=== PATIENT | female | born 1980 | race African-American/Black ===

== ENCOUNTER 2024-05-07 15:36 | Emergency (ER) | payer BC ==
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
[2024-05-07 16:22] VITALS: TEMP 98.1; O2SAT 100
[2024-05-07 16:23] VITALS: BP 117/65
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
== END 2024-05-07 16:16 | disposition home or self-care (01) ==
LOC: ER 15:36
DX: R06.02 Shortness of breath (principal); Z71.51 Drug abuse counseling and surveillance of drug abuser; F10.20 Alcohol dependence, uncomplicated; F41.9 Anxiety disorder, unspecified; Z59.00 Homelessness unspecified
CPT/HCPCS: 99284

== ENCOUNTER 2024-05-31 15:44 | Emergency (ER) | payer BC ==
[2024-05-31] MEDS ORDERED: DIPHENHYDRAMINE 50 MG/ML VIAL ONE (16:12)
[2024-05-31] MEDS ORDERED: HALOPERIDOL LACT 5 MG/ML INJ ONE ×2 (16:18→16:33)
[2024-05-31 16:59] LABS: Barbiturates NEGATIVE (NEGATIVE); Benzodiazepines NEGATIVE (NEGATIVE); Cocaine NEGATIVE (NEGATIVE); METHAMPHETAM NEGATIVE (NEGATIVE); Methadone NEGATIVE (NEGATIVE); Opiates NEGATIVE (NEGATIVE); Phencyclidine NEGATIVE (NEGATIVE); THC Cannibis NEGATIVE (NEGATIVE)
[2024-05-31 17:08] LABS: Absolute Basophils 0.1 K/uL (0-0.5); Absolute Eosinophils 0.1 K/uL (0-0.5); Absolute Lymphocytes (CBC) 2.3 K/uL (0.7-4.9); Absolute Monocytes 0.4 K/uL (0.1-1.3); Absolute Neutrophil 4.6 K/uL (1.8-8.0); Basophils % 1.2 % (0-1.3); Eosinophils % 0.8 % (0-4.4); Hematocrit 32.5 % (36.0-45.0); Hemoglobin 10.5 g/dL (12.0-15.0); Lymphocytes % 30.4 % (15.3-44.8); MCH 26.3 pg (27.0-35.0); MCHC 32.4 g/dL (32.0-36.0); MCV 81.1 fL (80-100); MPV 6.7 fL (7.6-11.3); Monocytes % 5.7 % (3.3-12.3); Neutrophils % 61.9 % (41.7-73.7); Nucleated Red Blood Cells % 0.1 % (0-0); Platelets 454 thou/uL (152-406); RBC Red Blood Cell Count 4.01 M/uL (3.86-4.86); Red Cell Distribution Width 21.8 % (12.1-15.2)
[2024-05-31 17:27] LABS: Anion Gap 9.5 mEq/L (5.0-15.0); Potassium 3.5 mEq/L (3.5-5.1); Troponin High Sensitivity 3.5 pg/mL (<58.9)
[2024-05-31] MEDS ORDERED: NA CHLORIDE 0.9% 1,000 ML ONE (17:33)
[2024-05-31 17:47] LABS: Anisocytosis 1+; Blood Morphology Comment NOTED (NOT SEEN); Ovalocytes 1+; Platelet Estimate INCR; Poikilocytosis 1+; White Blood Cell Scan OK (OK)
--- NOTE | 2024-05-31 18:01 | RAD REPORT ---
EXAMINATION: ONE VIEW CHEST XR CLINICAL INDICATION: Female, 44 years old.,COUGH TECHNIQUE: Frontal chest projection is submitted. Examination is limited by patient positioning and t echnique. COMPARISON: No prior exam. FINDINGS: Right basilar opacity. Central interstitial prominence more so on the right. Blunting of the costophr enic angles bilaterally. No pneumothorax or sizable effusion. The heart is normal in size. Mediastinal contours are unremarkable. IMPRESSION: Central and bibasilar findings as above, more pronounced on the right, may reflect a degree of centra l edema or atelectasis.
--- NOTE | 2024-05-31 19:43 | RAD REPORT ---
EXAM: CT Head Brain Wo Cont HISTORY: CONFUSED COMPARISON: None TECHNIQUE: Multiple contiguous axial images were obtained for a CT of the brain without contrast. Sag ittal and coronal reformats were performed. One or more of the following dose reduction techniques were used: Automated exposure control, adjus tment of the mA and kV according to patient size, and iterative reconstruction. Unless otherwise specified, incidental findings do not require dedicated imaging follow-up. FINDINGS: Patient rotation somewhat limits evaluation. No evidence of hydrocephalus, intracranial hemorrhage, or extra-axial fluid collection. The brain is normal in morphology. The calvarium is intact. The visualized paranasal sinuses and mastoid air cells are essentially clear . IMPRESSION: No evidence of acute intracranial abnormality.
--- NOTE | 2024-05-31 23:47 | EDPHYS ---
Physician Documentation [facility] Name: Berenice Gurrola Age: 44 yrs Sex: Female : 1980 Arrival Date: 05/31/2024 Time: 15:44 Bed 18 Private MD: ED Physician Leonardo Carpenter HPI: 05/31 16:22 This 44 yrs old Black Female presents to ER via EMS with complaints of Breathing ec2 Difficulty. 16:22 Patient with history of anxiety and asthma arrives today for evaluation of reported ec2 difficulty breathing. EMS reports that patient was complaining of difficulty breathing and subsequently gave the patient albuterol. No significant wheezing appreciated by EMS. Patient otherwise reports no other concerns.. MIXER SLAGMAN: 23:58 Not kj2 Historical: - Allergies: 15:56 No Known Allergies; kc6 - Home Meds: 15:56 Unable to obtain [Active]; kc6 - PMHx: 15:56 Anxiety; Asthma; Bipolar disorder; cleft palette; kc6 - PSHx: 15:56 Unable to Obtain; kc6 - Immunization history:: Adult Immunizations not up to date. - Infectious Disease History:: Denies. - Social history:: Smoking status: Patient reports the use of cigarette tobacco products, denies chronic smoking, but will smoke occasionally. ROS: 16:22 Constitutional: as per hpi ec2 Exam: 16:22 Constitutional: GEN: NAD Head: atraumatic Eyes: EOMI Ears: External ears are ec2 normal. CV: regular rate LUNGS: no respiratory distress, no wheezes, no rales, no rhonchi ABD: non-distended SKIN: no evidence of rashes MSK: no evidence of trauma Vital Signs: 15:53 BP 118 / 75; Pulse 92; Resp 20 S; Temp 98.2(O); Pulse Ox 100% on R/A; Height 4 ft. 11 kc6 in. (R); 17:40 BP 89 / 50; Pulse 67; Resp 16 S; Pulse Ox 100% on Non-rebreather mask; kc6 17:52 BP 94 / 51; Pulse 72; Resp 18 S; Pulse Ox 100% on Non-rebreather mask; kc6 18:23 BP 90 / 55; Pulse 70; Resp 17 S; Pulse Ox 100% on R/A; kc6 18:42 BP 85 / 53; Pulse 67; Resp 17 S; Pulse Ox 100% on R/A; kc6 19:56 BP 97 / 65; Pulse 82; Resp 18; Temp 98; Pulse Ox 100% on R/A; kj2 21:31 BP 95 / 66; Pulse 81; Resp 18; Pulse Ox 100% on R/A; kj2 22:33 BP 92 / 52; Pulse 75; Resp 18; Pulse Ox 100% on R/A; kj2 06/01 00:07 BP 93 / 60; Pulse 74; Resp 18; Temp 98; Pulse Ox 97% on R/A; kj2 00:08 BP 98 / 61; Pulse 74; Resp 18; kj2 MDM: 05/31 15:56 Medical Screening Exam initiated ec2 16:22 Data reviewed: vital signs, nurses notes. ED course: Patient arrives today for ec2 evaluation of reported shortness of breath. Examination remarkable for well-appearing nontoxic individuals otherwise in no acute distress with a reassuring examination. Will obtain lab work, urine studies, give the patient Haldol and Benadryl for the patient's reported anxiety as well. Differential diagnosis includes asthma exacerbation, anxiety, arrhythmia, electrolyte disturbances.. 16:41 ED course: EKG independently reviewed and interpreted by me, shows normal sinus rhythm, ec2 rate 94, no acute ST segment elevations, intervals are nonactionable.. 19:50 ED course: Patient signed out with repeat assessment and clinical sobering.. ec2 06/01 00:31 ED course: I assumed care at shift change, patient MIXER SLAGMAN, who is p.o. tolerant and was rt ambulatory to the bathroom. No indications for admission at this time.. 05/31 15:56 Order name: Basic Metabolic Panel; Complete Time: 17:28 ec2 05/31 15:56 Order name: CBC with Diff; Complete Time: 17:58 ec2 05/31 15:56 Order name: NT PRO-BNP; Complete Time: 17:28 ec2 05/31 15:56 Order name: Troponin HS; Complete Time: 17:28 ec2 05/31 15:56 Order name: Test, Serum; Complete Time: 17:28 ec2 05/31 15:56 Order name: UDS; Complete Time: 17:28 ec2 05/31 15:56 Order name: Ethanol; Complete Time: 17:30 ec2 05/31 17:47 Order name: CBC Smear Scan; Complete Time: 17:58 EDMS 05/31 15:56 Order name: XRAY Chest (1 view); Complete Time: 18:05 ec2 05/31 17:29 Order name: CT Head Brain wo Cont; Complete Time: 19:44 ec2 05/31 15:56 Order name: EKG; Complete Time: 15:57 ec2 05/31 15:56 Order name: Cardiac monitoring; Complete Time: 16:08 ec2 05/31 15:56 Order name: EKG - Nurse/Tech; Complete Time: 16:40 ec2 05/31 15:56 Order name: IV Saline Lock; Complete Time: 17:00 ec2 05/31 15:56 Order name: Labs collected and sent; Complete Time: 17:00 ec2 05/31 15:56 Order name: O2 Per Protocol; Complete Time: 16:08 ec2 05/31 15:56 Order name: O2 Sat Monitoring; Complete Time: 16:08 ec2 Administered Medications: 05/31 16:13 CANCELLED (Physician Discretion): droperidol2.5 mg IVP once ec2 16:33 CANCELLED (Physician Discretion): [id number] mg IVP once ec2 16:33 CANCELLED (Physician Discretion): haloperidol5 mg IVP once ec2 16:41 Drug: HALdol (as decanoate) IM 10 mg IM once Route: IM; Site: right deltoid; kc6 17:41 Follow up: Response: No adverse reaction; Anxiety decreased; RASS: Light sedation (-2) 6 16:41 Drug: diphenhydrAMINE IM 50 mg IM once Route: IM; Site: left deltoid; kc6 17:41 Follow up: Response: No adverse reaction 6 17:41 Drug: NS 0.9% IV 1000 ml IV at 1000 ml once; to be given as a bolus over 60 minutes kc Route: IV; Rate: 1000 ml; Site: right forearm; 06/01 00:00 Follow up: IV Status: Completed infusion; IV Intake: 1000ml kj2 Disposition Summary: 05/31/24 23:47 Discharge Ordered Notes: Location: Home rt Condition: Stable rt Diagnosis - Dyspnea, unspecified rt - Anxiety disorder, unspecified rt - Alcohol use, unspecified with intoxication rt Followup: ec2 - With: Private Physician - When: - Reason: Re-evaluation by your physician Discharge Instructions: - Discharge Summary Sheet ec2 - Panic Attack ec2 - Shortness of Breath, Adult, [id number] ec2 Forms: - Medication Reconciliation Form rt - Antibiotic Education rt - Prescription Opioid Use rt - Patient Portal Instructions rt - Leadership Thank You Letter rt Prescriptions: - albuterol sulfate 90 mcg/actuation Inhalation HFA Aerosol Inhaler - inhale 2 puff INHALATION route every 4 hours as needed for shortness of breath ec2 or wheezing; 1 unit; Refills: 0, Product Selection Permitted - Hydroxyzine HCl 25 mg Oral Tablet - take 1 tablet ORAL route every 6 hours As needed; 30 tablet; Refills: 0, ec2 Product Selection Permitted Signatures: Dispatcher [employer] EDCherie Yung, RN RN kc6 Leonardo Carpenter MD MD rt Bernard River MD MD ec2 Gill Sibley RN kj2 Corrections: (The following items were deleted from the chart) 05/31 15:56 15:56 Home Meds: None; kc6 kc6 15:57 15:57 BASIC METABOLIC PANEL+C.LAB.BRZ ordered. EDMS EDMS 15:57 15:57 CBC+H.LAB.BRZ ordered. EDMS EDMS 15:57 15:57 PROBNP+C.LAB.BRZ ordered. EDMS EDMS 15:57 15:57 Troponin High Sensitivity+C.LAB.BRZ ordered. EDMS EDMS 15:57 15:57 TEST, SERUM+SC.LAB.BRZ ordered. EDMS EDMS 15:57 15:57 URINE DRUG SCREEN+UC.LAB.BRZ ordered. EDMS EDMS 15:57 15:57 ETHANOL+C.LAB.BRZ ordered. EDMS EDMS 15:57 15:57 Chest Single View+RAD.RAD.BRZ ordered. EDMS EDMS 16:13 16:06 Droperidol IVP 2.5 mg IVP once ordered. ec2 ec2 16:13 16:13 Droperidol IVP 2.5 mg IVP once ordered. ec2 ec2 16:33 16:06 diphenhydrAMINE IVP 50 mg IVP once ordered. ec2 ec2 16:33 16:13 Haloperidol IVP 5 mg IVP once ordered. ec2 ec2 16:33 16:32 Haloperidol IVP 5 mg IVP once ordered. ec2 ec2 16:33 16:32 diphenhydrAMINE IVP 50 mg IVP once ordered. ec2 ec2
--- NOTE | 2024-05-31 23:47 | ER ---
Nurse's Notes [facility] Name: Berenice Gurrola Age: 44 yrs Sex: Female : 1980 Arrival Date: 05/31/2024 Time: 15:44 Bed 18 Private MD: Diagnosis: Dyspnea, unspecified;Anxiety disorder, unspecified;Alcohol use, unspecified with intoxication Presentation: 05/31 15:53 Chief complaint: EMS states: they were toned out for trouble breathing with a hx of kc6 asthma. pt reports not having access to an inhaler in a long time. Coronavirus screen: At this time, the client does not indicate any symptoms associated with coronavirus-19. Ebola Screen: No symptoms or risks identified at this time. Initial Sepsis Screen: Does the patient meet any 2 criteria? No. Patient's initial sepsis screen is negative. Does the patient have a suspected source of infection? No. Patient's initial sepsis screen is negative. Risk Assessment: Do you want to hurt yourself or someone else? Patient reports no desire to harm self or others. Onset of symptoms was May 31, 2024. 15:53 Method Of Arrival: EMS: [facility] kc6 15:53 Acuity: CLEMENCIA 3 kc6 16:07 Care prior to arrival: Medication(s) given: Albuterol Neb x 2. kc6 Triage Assessment: 15:56 General: Appears in no apparent distress. uncomfortable, well groomed, well developed, kc6 Behavior is drowsy, Smells of alcohol. Pain: Denies pain. EENT: No signs and/or symptoms were reported regarding the EENT system. Neuro: Level of Consciousness is awake, alert, obeys commands, confused, Oriented to person, place, situation, Appropriate for age. Cardiovascular: Capillary refill < 3 seconds. Respiratory: Reports shortness of breath at rest on exertion Airway is patent Trachea midline Respiratory effort is even, Respiratory pattern is regular, symmetrical, Onset: The symptoms/episode began/occurred today, the patient has mild shortness of breath. GI: No signs and/or symptoms were reported involving the gastrointestinal system. : No signs and/or symptoms were reported regarding the genitourinary system. Derm: No signs and/or symptoms reported regarding the dermatologic system. Skin is intact, is healthy with good turgor, Skin is pink, warm \T\ dry. Musculoskeletal: No signs and/or symptoms reported regarding the musculoskeletal system. Circulation, motion, and sensation intact. Capillary refill < 3 seconds, Range of motion: intact in all extremities. IT SECURITY ANALYST: 23:58 Not kj2 Historical: - Allergies: 15:56 No Known Allergies; kc6 - Home Meds: 15:56 Unable to obtain [Active]; kc6 - PMHx: 15:56 Anxiety; Asthma; Bipolar disorder; cleft palette; kc6 - PSHx: 15:56 Unable to Obtain; kc6 - Immunization history:: Adult Immunizations not up to date. - Infectious Disease History:: Denies. - Social history:: Smoking status: Patient reports the use of cigarette tobacco products, denies chronic smoking, but will smoke occasionally. Screenin:07 [facility] ED Fall Risk Assessment (Adult) History of falling in the last 3 months, kc6 including since admission No falls in past 3 months (0 pts) Confusion or Disorientation Yes (5 pts) Intoxicated or Sedated Yes (3 pts) Impaired Gait No (0 pts) Mobility Assist Device Used No (0 pt) Altered Elimination No (0 pt) Score/Fall Risk Level 3 or more points = High Risk Oriented to surroundings, Maintained a safe environment, Educated pt \T\ family on fall prevention, incl call for assistance when getting out of bed. Abuse screen: Denies threats or abuse. Denies injuries from another. Nutritional screening: No deficits noted. Tuberculosis screening: No symptoms or risk factors identified. Assessment: 16:07 Reassessment: please see triage. kc6 17:07 Reassessment: Patient appears in no apparent distress at this time. No changes from kc6 previously documented assessment. Patient and/or family updated on plan of care and expected duration. Pain level reassessed. 17:15 Reassessment: pts SPO2 appears to 48% on RA. pt with eyes closed, respirations even but kc6 agonal. ore charger and Dr. River at bedside. pt aroused by painful stimulus and placed on NRB at this time. SPO2 is now 99%. 18:42 Reassessment: Patient appears in no apparent distress at this time. No changes from kc6 previously documented assessment. Patient and/or family updated on plan of care and expected duration. Pain level reassessed. 19:00 Reassessment: patient in cat scan. kj2 19:10 Reassessment: patient returned from cat scan, resting calmly at this time. kj2 19:31 Reassessment: Patient appears in no apparent distress at this time. Patient and/or kj2 family updated on plan of care and expected duration. Pain level reassessed. Patient is alert, oriented x 3, equal unlabored respirations, skin warm/dry/pink. 20:30 Cardiovascular: Rhythm is regular. kj2 21:23 Reassessment: Patient appears in no apparent distress at this time. Patient and/or kj2 family updated on plan of care and expected duration. Pain level reassessed. Patient is alert, oriented x 3, equal unlabored respirations, skin warm/dry/pink. patient asleep, aroused to tactile stimuli. 22:30 Reassessment: patient walked to bathroom with assistance from tech. kj2 22:53 Reassessment: Patient appears in no apparent distress at this time. Patient and/or 2 family updated on plan of care and expected duration. Pain level reassessed. Patient is alert, oriented x 3, equal unlabored respirations, skin warm/dry/pink. 23:25 Reassessment: Evie [facility] called to check on the patient status to [facility] determine if she is being admitted or discharged. phone # [phone]. 23:56 Respiratory: Breath sounds with wheezes bilaterally. low pitch wheezing heard in upper kj2 lobes. Vital Signs: 15:53 BP 118 / 75; Pulse 92; Resp 20 S; Temp 98.2(O); Pulse Ox 100% on R/A; Height 4 ft. 11 kc6 in. (R); 17:40 BP 89 / 50; Pulse 67; Resp 16 S; Pulse Ox 100% on Non-rebreather mask; kc6 17:52 BP 94 / 51; Pulse 72; Resp 18 S; Pulse Ox 100% on Non-rebreather mask; kc6 18:23 BP 90 / 55; Pulse 70; Resp 17 S; Pulse Ox 100% on R/A; kc6 18:42 BP 85 / 53; Pulse 67; Resp 17 S; Pulse Ox 100% on R/A; kc6 19:56 BP 97 / 65; Pulse 82; Resp 18; Temp 98; Pulse Ox 100% on R/A; kj2 21:31 BP 95 / 66; Pulse 81; Resp 18; Pulse Ox 100% on R/A; kj2 22:33 BP 92 / 52; Pulse 75; Resp 18; Pulse Ox 100% on R/A; kj2 06/01 00:07 BP 93 / 60; Pulse 74; Resp 18; Temp 98; Pulse Ox 97% on R/A; kj2 00:08 BP 98 / 61; Pulse 74; Resp 18; kj2 ED Course: 05/31 15:53 Patient arrived in ED. kc6 15:56 Triage completed. kc6 15:56 Bernard River MD is Attending Physician. ec2 15:56 Arm band placed on. kc6 16:07 Patient has correct armband on for positive identification. Bed in low position. Call kc6 light in reach. Side rails up X2. golf technician on. Pulse ox on. NIBP on. Door closed. Noise minimized. Lights dimmed. Warm blanket given. Pillow given. 16:07 Assisted to bedside commode. kc6 16:07 Patient maintains SpO2 saturation greater than 95% on room air. kc6 16:08 Cherie Enriquez, ANTHONY is Primary Nurse. kc6 16:55 Missed attempt(s): 20 gauge in right antecubital area. Missed attempt(s): 22 gauge in kc6 left antecubital area. 16:58 Initial lab(s) drawn, by me, sent to lab. Inserted saline lock: 24 gauge in right aa5 forearm, using aseptic technique. Blood collected. Flushed with 10 mL NS. 17:23 XRAY Chest (1 view) In Process Unspecified. EDMS 18:[address] via stretcher. kc6 19:00 CT Head Brain wo Cont In Process Unspecified. EDMS 19:00 Report given to Zoë Sibley RN. kc6 19:00 Provided Education on:. Report received from ANTHONY Crespo. kj2 20:00 Attending Physician role handed off by Bernard River MD rt 20:00 Leoanrdo Carpenter MD is Attending Physician. rt 21:40 No provider procedures requiring assistance completed. kj2 22:30 Assisted to bathroom. kj2 23:58 IV discontinued, intact, bleeding controlled, No redness/swelling at site. Pressure kj2 dressing applied. Administered Medications: 16:13 CANCELLED (Physician Discretion): droperidol2.5 mg IVP once ec2 16:33 CANCELLED (Physician Discretion): [id number] mg IVP once ec2 16:33 CANCELLED (Physician Discretion): haloperidol5 mg IVP once ec2 16:41 Drug: HALdol (as decanoate) IM 10 mg IM once Route: IM; Site: right deltoid; kc6 17:41 Follow up: Response: No adverse reaction; Anxiety decreased; RASS: Light sedation (-2) kc6 16:41 Drug: diphenhydrAMINE IM 50 mg IM once Route: IM; Site: left deltoid; kc6 17:41 Follow up: Response: No adverse reaction kc6 17:41 Drug: NS 0.9% IV 1000 ml IV at 1000 ml once; to be given as a bolus over 60 minutes kc6 Route: IV; Rate: 1000 ml; Site: right forearm; 06/01 00:00 Follow up: IV Status: Completed infusion; IV Intake: 1000ml kj2 Medication: 05/31 19:14 VIS not applicable for this client. kj2 Intake: 06/01 00:00 IV: 1000ml; Total: 1000ml. kj2 Outcome: 05/31 23:47 Discharge ordered by . rt 23:57 Discharged to [facility] kj2 23:57 Condition: stable 23:57 Discharge instructions given to patient, 06/01 00:21 Patient left the ED. kj2 Signatures: Dispatcher [employer] Janene Starks RN RN aa5 Cherie Enriquez RN RN kc6 Leonardo Carpenter MD MD rt Bernard River MD MD ec2 Gill Sibley RN RN kj2 Corrections: (The following items were deleted from the chart) 05/31 15:56 15:56 Home Meds: None; kc6 kc6 17:40 15:56 General: Appears in no apparent distress. uncomfortable, well groomed, well kc6 developed, Behavior is drowsy, Smells of alcohol, kc6 17:40 15:56 Neuro: Level of Consciousness is awake, alert, obeys commands, Oriented to kc6 person, place, situation, Appropriate for age kc6 23:33 23:25 Reassessment: Evie from [facility] called to check on the patient kj2 status to determine if she is being admitted or discharged kj2
[2024-06-01 07:38] VITALS: TEMP 98
[2024-06-01 07:42] VITALS: O2SAT 97
[2024-06-01 07:43] VITALS: BP 98/61
--- NOTE | 2024-06-02 11:37 | EKG ---
Test Date: 2024-05-31 Test Time: 16:21:40 Mechanical Energy Engineer: PERRY MEASUREMENT RESULTS: Intervals: Rate: 94 UT: 160 QRSD: 86 QT: 364 QTc: 455 [place]: P: 81 UT: 160 QRS: 92 T: 42 INTERPRETIVE STATEMENTS: Normal sinus rhythm Rightward axis Anterior infarct, age undetermined Abnormal ECG No previous ECG available for comparison Electronically Signed On 06-02-24 11:34:10 TOOLS PROGRAMMER by Jozef Davis
== END 2024-06-01 00:21 | disposition home or self-care (01) ==
LOC: ER 15:44
DX: R06.00 Dyspnea, unspecified (principal); F41.9 Anxiety disorder, unspecified; F10.929 Alcohol use, unspecified with intoxication, unspecified
CPT/HCPCS: 96361; 93005; 85025; 80048; 36415; 84703; 84484; 83880; 80307; 70450; 71045; 96360; 96372; 99285; 82077; J1630 ×2; J1200; J7030

== ENCOUNTER 2024-06-08 15:41 | Emergency (ER) | payer BC ==
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
--- NOTE | 2024-06-08 19:16 | ER ---
Nurse's Notes [facility] Name: Berenice Gurrola Age: 44 yrs Sex: Female : 1980 Arrival Date: 06/08/2024 Time: 15:41 Bed Treatment Private MD: Diagnosis: Alcohol abuse with intoxication Presentation: 06/08 15:46 Chief complaint: EMS states: [facility] BY STAFF. PT REFUSING bp PIV AND BGL CHECK. Coronavirus screen: At this time, the client does not indicate any symptoms associated with coronavirus-19. Ebola Screen: No symptoms or risks identified at this time. Initial Sepsis Screen: Does the patient meet any 2 criteria? HR > 90 bpm. No. Patient's initial sepsis screen is negative. Does the patient have a suspected source of infection? No. Patient's initial sepsis screen is negative. Risk Assessment: Do you want to hurt yourself or someone else? Patient reports no desire to harm self or others. Onset of symptoms is unknown. 15:46 Method Of Arrival: EMS: [facility] bp 15:46 Acuity: CLEMENCIA 3 bp Triage Assessment: 15:47 General: Appears unkempt, Behavior is uncooperative. Pain: Denies pain. bp Historical: - Allergies: 15:47 No Known Allergies; bp - PMHx: 15:47 Anxiety; Asthma; Bipolar disorder; cleft Palette; bp - Immunization history:: Adult Immunizations unknown. - Infectious Disease History:: Denies. - Social history:: Smoking status: unknown. Screenin:12 [facility] ED Fall Risk Assessment (Adult) History of falling in the last 3 months, ap3 including since admission Yes- fall prone (multiple falls) (3 pts) Confusion or Disorientation Yes (5 pts) Intoxicated or Sedated Yes (3 pts) Impaired Gait Yes (1 pt) Mobility Assist Device Used No (0 pt) Altered Elimination No (0 pt) Score/Fall Risk Level 3 or more points = High Risk Oriented to surroundings, Maintained a safe environment, Educated pt \T\ family on fall prevention, incl call for assistance when getting out of bed, Assessed \T\ reinforced patient's understanding of fall precautions, Provided non-skid footwear, Hourly rounding (assess needs \T\ fall precautionary measures) done, Used ambulatory aids as needed (educated on \T\ assisted with), Used gait belt as appropriate Implemented a Fall Risk Plan of Care, Apply high fall risk patient identification: yellow non skid footwear/ fall signage, Remained w/in arm's length of patient and in sight while toileting, Offered frequent toileting (1:1 observation), Remained with patient while ambulating. Abuse screen: Denies threats or abuse. Nutritional screening: No deficits noted. Tuberculosis screening: No symptoms or risk factors identified. Assessment: 17:18 General: Appears in no apparent distress. Behavior is calm. ap3 06/09 04:26 Reassessment: Patient is alert, oriented x 3, equal unlabored respirations, skin dd2 warm/dry/pink. Pt ambulatory with steady gait, no s/s of intoxication. Patient states symptoms have improved. Vital Signs: 06/08 15:46 BP 110 / 64; Pulse 110; Resp 20; Temp 98; Pulse Ox 97% ; bp 19:37 BP 115 / 68; Pulse 91; Resp 17; Temp 98.4; Pulse Ox 97% ; dd2 21:41 BP 112 / 63; Pulse 86; Resp 15; Pulse Ox 97% ; dd2 04 02:05 BP 109 / 65; Pulse 78; Resp 15; Pulse Ox 98% ; dd2 04:26 BP 111 / 65; Pulse 77; Resp 16; Temp 98.3; Pulse Ox 99% ; dd2 ED Course: 06/08 15:45 Patient arrived in ED. bp 15:46 El[facility]C [facility] kb 15:47 Bernard River MD is Attending Physician. kb 15:47 Triage completed. bp 15:50 Oneida Ceja, ANTHONY is Primary Nurse. ap3 15:51 Bernard River MD is Attending Physician. ec2 16:12 Arm band placed on right wrist. ap3 16:12 Patient has correct armband on for positive identification. Placed in gown. Bed in low ap3 position. Call light in reach. Side rails up X2. Provided Education on: fall risk education. Client placed on continuous cardiac and pulse oximetry monitoring. NIBP monitoring applied. monitoring and evaluation advisor on. Pulse ox on. NIBP on. 20:35 No provider procedures requiring assistance completed. vc1 06/09 04:26 Patient did not have IV access during this emergency room visit. dd2 Administered Medications: No medications were administered Medication: 06/08 16:12 VIS not applicable for this client. ap3 Outcome: 19:15 Discharge ordered by . ec2 06/09 04:26 Discharged to home ambulatory, dd2 Condition: stable Discharge instructions given to patient, Instructed on discharge instructions, follow up and referral plans. Demonstrated understanding of instructions, follow-up care, 04:28 Patient left the ED. dd2 Signatures: Eladia Gordillo, ORION-Roddy SEARS-Josh Londono, RN RN bp Oneida Ceja RN RN ap3 Concetta Colindres RN RN vc1 Bernard River MD MD ec2 RAUL ROBERSON RN RN dd2
[2024-06-09 10:31] VITALS: BP 111/65; TEMP 98.3; O2SAT 99
== END 2024-06-09 04:28 | disposition home or self-care (01) ==
LOC: ER 15:41
DX: F10.129 Alcohol abuse with intoxication, unspecified (principal)
CPT/HCPCS: 99284

== ENCOUNTER 2024-06-26 19:22 | Emergency (ER) | payer BC ==
[2024-06-26] MEDS ORDERED: METHYLPREDNISOLONE 125 MG INJ ONE (20:31)
[2024-06-26] MEDS ORDERED: ALBUTEROL 2.5 MG/3 ML NEB SOL ONE (20:31)
[2024-06-26] MEDS ORDERED: IPRATROPIUM BROM 0.5MG/2.5ML ONE (20:31)
[2024-06-26 20:58] LABS: Absolute Basophils 0.1 K/uL (0-0.5); Absolute Eosinophils 0.2 K/uL (0-0.5); Absolute Lymphocytes (CBC) 2.5 K/uL (0.7-4.9); Absolute Monocytes 0.6 K/uL (0.1-1.3); Absolute Neutrophil 3.7 K/uL (1.8-8.0); Basophils % 0.9 % (0-1.3); Eosinophils % 3.1 % (0-4.4); Hematocrit 29.4 % (36.0-45.0); Hemoglobin 9.2 g/dL (12.0-15.0); MCH 25.2 pg (27.0-35.0); MCHC 31.1 g/dL (32.0-36.0); MPV 6.9 fL (7.6-11.3); Monocytes % 8.6 % (3.3-12.3); Neutrophils % 52.4 % (41.7-73.7); Nucleated Red Blood Cells % 0.1 % (0-0); Platelets 430 thou/uL (152-406); RBC Red Blood Cell Count 3.64 M/uL (3.86-4.86); Red Cell Distribution Width 20.3 % (12.1-15.2)
[2024-06-26 21:20] LABS: Anion Gap 8.2 mEq/L (5.0-15.0); Troponin High Sensitivity 3.8 pg/mL (<58.9)
[2024-06-26 21:21] LABS: Potassium 4.2 mEq/L (3.5-5.1)
--- NOTE | 2024-06-26 21:21 | RAD REPORT ---
EXAM: Chest Single View HISTORY: DYSPNEA COMPARISON: 05/31/2024 FINDINGS: LUNGS/PLEURA: Prominence of the interstitial markings in the lung bases bilaterally. MEDIASTINUM: The mediastinal silhouette is within normal limits. CARDIAC: Within normal limits. UPPER ABDOMEN: No significant abnormality. BONES: No acute fracture. LINES/TUBES/OTHER: N/A IMPRESSION: Prominence of the interstitial markings in the lung bases medially could be mild infection or inflamm ation. No edema or consolidative airspace disease. Improved aeration compared with 05/31/2024.
--- NOTE | 2024-06-26 21:47 | EDPHYS ---
Physician Documentation [facility] Name: Berenice Gurrola Age: 44 yrs Sex: Female : 1980 Arrival Date: 06/26/2024 Time: 19:22 Bed 23 Private MD: ED Physician Shashi Crowder HPI: 06/26 19:55 This 44 yrs old Black Female presents to ER via EMS with complaints of Breathing bo1 Difficulty. 19:55 The patient has shortness of breath at rest, and the patient has a history of asthma. bo1 Onset: The symptoms/episode began/occurred today. Duration: The symptoms are continuous. The patient has experienced similar episodes in the past. Pt arrives by EMS, limited speech. Needs a breathing treatment. APPLIED RESEARCH DIRECTOR: 19:31 LMP 06/19/2024, unknown vc1 Historical: - Allergies: 19:29 No Known Allergies; vc1 - Home Meds: 19:29 Albuterol Inhl [Active]; vc1 - PMHx: 19:29 Anxiety; Asthma; Bipolar disorder; cleft Palette; vc1 - PSHx: 19:29 None; vc1 - Immunization history:: Client reports having NOT received the Covid vaccine. Flu vaccine is not up to date. - Infectious Disease History:: Denies. - Social history:: Smoking status: Patient/guardian denies using tobacco, Stopped _ months ago 3. ROS: 19:56 Constitutional: Negative for fever, chills, and weight loss bo1 19:56 Neck: Negative for pain at rest, 19:56 Cardiovascular: Negative for chest pain, 19:56 Respiratory: Positive for shortness of breath, 19:56 Abdomen/GI: Negative for abdominal pain, 19:56 MS/extremity: Negative for pain, swelling, 19:56 Skin: Negative for rash, 19:56 All other systems are negative, Exam: 20:17 Constitutional: This is a well developed, well nourished patient who is awake, alert, bo1 and in mild acute distress. 20:17 Constitutional: The patient appears alert, awake, non-toxic, in obvious distress, mildly distressed, Pt prefers to be non-verbal. 20:17 Neck: External neck: is normal, no acute changes, 20:17 Chest/axilla: Inspection: normal, 20:17 Cardiovascular: Rate: normal, Rhythm: regular, Pulses: no pulse deficits are appreciated, Heart sounds: normal, 20:17 Respiratory: mild respiratory distress is noted, By virtue of being "non-verbal", Respirations: labored breathing, shallow respirations, Rate is normal with normal saturation, pt on monitors and pulse ox, 20:17 Abdomen/GI: Palpation: abdomen is soft and non-tender, 20:17 Musculoskeletal/extremity: No swelling or tenderness. 20:17 Neuro: No AMS, pt is acutely aware and acknowledges me, the ER provider, 20:59 ECG was reviewed by the Attending Physician. bo1 Vital Signs: 19:27 BP 112 / 75; Pulse 74; Resp 22; Temp 98; Pulse Ox 100% ; Weight 52.16 kg; Height 4 ft. vc1 11 in. ; Pain 0/10; 21:15 BP 107 / 84; Pulse 77; Resp 16; Pulse Ox 100% on R/A; jb4 19:27 Body Mass Index 23.23 (52.16 kg, 149.86 cm) vc1 19:27 Pain Scale: Adult vc1 MDM: 19:48 Medical Screening Exam initiated bo1 21:42 Differential diagnosis: Anxiety Reaction asthma, reactive airway disease. Data bo1 reviewed: vital signs, old medical records, lab test result(s), EKG, radiologic studies, plain films. 21:43 ED course: Improved CXR since bo1 06/26 19:53 Order name: BMP; Complete Time: 21:27 bo1 06/26 19:53 Order name: CBC with Diff; Complete Time: 21:27 bo06/26 19:53 Order name: CPK; Complete Time: 21:27 bo1 06/26 19:53 Order name: Troponin HS; Complete Time: 21:27 bo1 06/26 19:53 Order name: XRAY CXR (1 view); Complete Time: 21:27 bo1 06/26 19:53 Order name: Cardiac monitoring; Complete Time: 20:43 bo1 06/26 19:53 Order name: EKG - Nurse/Tech; Complete Time: 20:43 bo06/26 19:53 Order name: Labs collected and sent; Complete Time: 21:11 bo06/26 19:53 Order name: O2 Per Protocol; Complete Time: 20:20 bo06/26 19:53 Order name: O2 Sat Monitoring; Complete Time: 20:20 bo1 EC:59 Rate is 73 beats/min. Rhythm is regular. QRS [place] is Normal. [place] interval is normal. QRS bo1 interval is normal. QT interval is normal. No Q waves. T waves are Normal. No ST changes noted. Clinical impression: Normal ECG. Interpreted by me. Reviewed by me. Administered Medications: 20:43 Drug: DuoNeb Nebulize (3:1) (2.5 mg - 0.5 mg) 3 ml Nebulizer once Route: Nebulizer; jb4 22:14 Follow up: Response: No adverse reaction; Marked relief of symptoms; Wheezing diminishedjb4 21:11 CANCELLED (Other Intervention Used): [id number] mg IVP once vc1 21:18 Drug: MethylPREDNISolone Sodium Succinate IM 60 mg IM once Route: IM; Site: right jb4 deltoid; 22:14 Follow up: Response: No adverse reaction; Marked relief of symptoms jb4 Disposition Summary: 06/26/24 21:47 Discharge Ordered Notes: Location: Home bo1 Problem: an acute exacerbation bo1 Symptoms: have improved bo1 Condition: Stable bo1 Diagnosis - Unspecified asthma with (acute) exacerbation bo1 Followup: bo1 - With: Private Physician - When: Upon discharge from the Emergency Department - Reason: Recheck today's complaints, Continuance of care Discharge Instructions: - Discharge Summary Sheet bo1 - Bronchospasm, Adult bo1 Forms: - Medication Reconciliation Form bo1 - Antibiotic Education bo1 - Prescription Opioid Use bo1 - Patient Portal Instructions bo1 - Leadership Thank You Letter bo1 Prescriptions: - Atrovent HFA 17 mcg/actuation Inhalation HFA Aerosol Inhaler - inhale 3 inhalation INHALATION route every 8 hours as needed for shortness of bo1 breath or wheezing; 1 unit; Refills: 0, Product Selection Permitted - Ventolin HFA 90 mcg/actuation Inhalation HFA Aerosol Inhaler - inhale 2 inhalation INHALATION route every 6 hours as needed for bronchospasm; bo1 administer via ventilator; 1 unit; Refills: 0, Product Selection Permitted - Prednisone 20 mg Oral Tablet - take 2 tablets ORAL route once daily for 5 days; 10 tablet; Refills: 0, Product bo1 Selection Permitted Signatures: Dispatcher [employer] Harrison Sosa RN RN jb4 Concetta Colindres RN RN vc1 Oei, MD BROOKLYNN Danielle bo1 Corrections: (The following items were deleted from the chart) 19: 19:54 BASIC METABOLIC PANEL+C.LAB.BRZ ordered. EDMS EDMS : 19:54 CBC+H.LAB.BRZ ordered. EDMS EDMS :54 19:54 CREATINE PHOSPHOKINASE+C.LAB.BRZ ordered. EDMS EDMS : 19:54 Troponin High Sensitivity+C.LAB.BRZ ordered. EDMS EDMS : 19:54 Chest Single View+RAD.RAD.BRZ ordered. EDMS EDMS : 19:53 IV Saline Lock ordered. bo1 vc1 : 19:57 MethylPrednisoLONE IVP 60 mg IVP once ordered. bo1 vc1 : 21:11 MethylPrednisoLONE IVP 60 mg IVP once ordered. vc1 vc1
--- NOTE | 2024-06-26 21:47 | ER ---
Nurse's Notes [facility] Name: Berenice Gurrola Age: 44 yrs Sex: Female : 1980 Arrival Date: 06/26/2024 Time: 19:22 Bed 23 Private MD: Diagnosis: Unspecified asthma with (acute) exacerbation Presentation: 06/26 19:27 Chief complaint: EMS states: Difficulty breathing that started just prior to her vc1 calling EMS. Coronavirus screen: Client denies travel out of the [place] in the last 14 days. difficulty breathing, Client presents with at least one sign or symptom that may indicate coronavirus-19. Ebola Screen: Patient negative for fever greater than or equal to 101.5 degrees Fahrenheit, and additional compatible Ebola Virus Disease symptoms Patient denies exposure to infectious person. Patient denies travel to an Ebola-affected area in the 21 days before illness onset. No symptoms or risks identified at this time. Initial Sepsis Screen: Does the patient meet any 2 criteria? No. Patient's initial sepsis screen is negative. Does the patient have a suspected source of infection? No. Patient's initial sepsis screen is negative. Risk Assessment: Do you want to hurt yourself or someone else? Patient reports no desire to harm self or others. Onset of symptoms was June 26, 2024. Care prior to arrival: Medication(s) given: Albuterol Neb x 1, Med neb given. Activity prior to arrival: None. Mechanism of Injury: No Mechanism of Injury. Transition of care: From [facility] [phone]. 19:27 Method Of Arrival: EMS: [facility] vc1 19:27 Acuity: [place] 3 vc1 Triage Assessment: 19:31 General: Appears in no apparent distress. slender, Behavior is cooperative. Pain: vc1 Denies pain. EENT: No deficits noted. No signs and/or symptoms were reported regarding the EENT system. Neuro: Level of Consciousness is awake, alert, obeys commands, Oriented to person, place, time, situation, Appropriate for age. Cardiovascular: Capillary refill < 3 seconds Patient's skin is warm and dry. Respiratory: Airway is patent Respiratory effort is even, labored, Respiratory pattern is symmetrical, tachypnea Breath sounds with wheezes bilaterally. GI: No deficits noted. No signs and/or symptoms were reported involving the gastrointestinal system. : No deficits noted. No signs and/or symptoms were reported regarding the genitourinary system. Derm: Skin is intact, is healthy with good turgor, Skin is dry, Skin is normal, Skin temperature is warm. Musculoskeletal: Circulation, motion, and sensation intact. Range of motion: intact in all extremities. PIANO TUNER: 19:31 LMP 06/19/2024, unknown vc1 Historical: - Allergies: 19:29 No Known Allergies; vc1 - Home Meds: 19:29 Albuterol Inhl [Active]; vc1 - PMHx: 19:29 Anxiety; Asthma; Bipolar disorder; cleft Palette; vc1 - PSHx: 19:29 None; vc1 - Immunization history:: Client reports having NOT received the Covid vaccine. Flu vaccine is not up to date. - Infectious Disease History:: Denies. - Social history:: Smoking status: Patient/guardian denies using tobacco, Stopped _ months ago 3. Screenin:31 [facility] ED Fall Risk Assessment (Adult) History of falling in the last 3 months, vc1 including since admission No falls in past 3 months (0 pts) Confusion or Disorientation No (0 pts) Intoxicated or Sedated No (0 pts) Impaired Gait No (0 pts) Mobility Assist Device Used No (0 pt) Altered Elimination No (0 pt) Score/Fall Risk Level 0 - 2 = Low Risk Oriented to surroundings, Maintained a safe environment, Educated pt \T\ family on fall prevention, incl call for assistance when getting out of bed. Abuse screen: Denies threats or abuse. Nutritional screening: No deficits noted. Tuberculosis screening: No symptoms or risk factors identified. Assessment: 22:12 Reassessment: Patient appears in no apparent distress at this time. Patient and/or jb4 family updated on plan of care and expected duration. Pain level reassessed. Patient is alert, oriented x 3, equal unlabored respirations, skin warm/dry/pink. Patient states feeling better. Vital Signs: 19:27 BP 112 / 75; Pulse 74; Resp 22; Temp 98; Pulse Ox 100% ; Weight 52.16 kg; Height 4 ft. vc1 11 in. ; Pain 0/10; 21:15 BP 107 / 84; Pulse 77; Resp 16; Pulse Ox 100% on R/A; jb4 19:27 Body Mass Index 23.23 (52.16 kg, 149.86 cm) vc1 19:27 Pain Scale: Adult vc1 ED Course: 19:25 Patient arrived in ED. rv1 19:29 Triage completed. vc1 19:31 Arm band placed on right wrist. vc1 19:31 Patient has correct armband on for positive identification. Bed in low position. Call vc1 light in reach. Pulse ox on. NIBP on. 19:48 Shashi Crowder MD is Attending Physician. bo1 20:57 Initial lab(s) drawn, by me, sent to lab. Missed attempt(s): 22 gauge in left jb4 antecubital area. Bleeding controlled, band aid applied, catheter tip intact. 21:12 XRAY CXR (1 view) In Process Unspecified. EDMS 22:12 Provided Education on: discharge instructions.. jb4 22:12 No provider procedures requiring assistance completed. Patient did not have IV access jb4 during this emergency room visit. Administered Medications: 20:43 Drug: DuoNeb Nebulize (3:1) (2.5 mg - 0.5 mg) 3 ml Nebulizer once Route: Nebulizer; jb4 22:14 Follow up: Response: No adverse reaction; Marked relief of symptoms; Wheezing diminishedjb4 21:11 CANCELLED (Other Intervention Used): [id number] mg IVP once vc1 21:18 Drug: MethylPREDNISolone Sodium Succinate IM 60 mg IM once Route: IM; Site: right jb4 deltoid; 22:14 Follow up: Response: No adverse reaction; Marked relief of symptoms jb4 Medication: 22:12 VIS not applicable for this client. jb4 Outcome: 21:47 Discharge ordered by . bo1 22:12 Discharged to Rehab Facility jb4 22:12 Condition: stable 22:12 Discharge instructions given to patient, Instructed on discharge instructions, follow up and referral plans. medication usage, Demonstrated understanding of instructions, follow-up care, medications, Prescriptions given X 3, 22:14 Patient left the ED. jb4 Signatures: Dispatcher [employer] EDMS Harrison Mauro RN RN jb4 Concetta Colindres RN RN vc1 Myrtle Gonzalez rv1 Shashi Crowder MD MD bo1
[2024-06-26 22:44] VITALS: TEMP 98; O2SAT 100
[2024-06-26 22:45] VITALS: BP 107/84
--- NOTE | 2024-06-28 11:10 | EKG ---
Test Date: 2024-06-26 Test Time: 20:26:45 Merchandising Professor: JO MEASUREMENT RESULTS: Intervals: Rate: 73 MA: 176 QRSD: 86 QT: 400 QTc: 440 [place]: P: 63 MA: 176 QRS: 89 T: 73 INTERPRETIVE STATEMENTS: Normal sinus rhythm Normal ECG Compared to ECG 05/31/2024 16:21:40 Right-axis deviation no longer present Myocardial infarct finding no longer present Electronically Signed On 06-28-24 11:07:26 DEPUTY EDITOR IN CHIEF by Jozef Davis
== END 2024-06-26 22:14 | disposition home or self-care (01) ==
LOC: ER 19:22
DX: J45.901 Unspecified asthma with (acute) exacerbation (principal); Z28.310 Unvaccinated for COVID-19
CPT/HCPCS: 93005; 85025; 80048; 36415; 82550; 84484; 71045; 96372; 99285; J7613; J7644; J2919